=== PATIENT | male | born 1985 | race Caucasian/White ===

== ENCOUNTER 2020-10-04 18:25 | Emergency (ER) | payer OTHER, SELFPAY ==
--- NOTE | ~2020-10-04 | XR_ITS ---
EXAMINATION: XR elbow LT min 3V DATE: 10/04/2020 19:19 INDICATION: Pain at the proximal left radius and ulna post fall TECHNIQUE: Anteroposterior, two oblique and lateral views of the left elbow were obtained. COMPARISON: None. FINDINGS: Alignment is normal. Subtle linear sclerosis and cortical angulation at the anterior proximal radial head neck junction on the lateral projection consistent with minimally impacted extra articular fract ure. No other fractures identified. Joint spaces are normal. There is an associated elbow joint effus ion with displacement of both the anterior and posterior fat pads. IMPRESSION: 1. Minimally impacted fracture at the head neck junction of the proximal left radius. 2. Left elbow joint effusion. Reviewed, dictated and finalized at location A. IMPRESSION: 1. Minimally impacted fracture at the head neck junction of the proximal left r adius. 2. Left elbow joint effusion.
--- NOTE | ~2020-10-04 | XR_ITS ---
EXAMINATION: XR wrist LT min 3V DATE: 10/04/2020 19:19 INDICATION: Generalized left wrist pain post fall TECHNIQUE: Posteroanterior, ulnar deviation, oblique, and lateral views of the left wrist were obtain ed. COMPARISON: none FINDINGS: Alignment is normal at the left wrist. No fracture. 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 Soft tissues are unremarkable. IMPRESSION: 1. No acute osseous abnormality. Reviewed, dictated and finalized at location A.
[2020-10-04 18:50] VITALS: BP 160/113; PULSE 80; RESP 18; TEMP 36.5; O2SAT 98
[2020-10-04 19:53] VITALS: BP 172/100; PULSE 89; RESP 18; TEMP 36.7; O2SAT 100
--- NOTE | 2020-10-04 22:24 | ED.GENADULT ---
HPI - General Adult General Chief complaint: Extremity Injury, Upper Stated complaint: right arm pain Time Seen by Provider: 10/04/20 22:06 History of Present Illness HPI narrative: Patient is a 35-year-old gentleman who presents the emergency department chief complaint of left elbow pain. Patient reports that he fell on outstretched hand today and started having pain in his left elbow. Patient states he was seen in urgent care had plain film x-rays that did not show evidence of fracture patient was placed in a sling and reports that he continued to have worsening pain reports anytime he pronates and supinates the pain is worse. The patient has had a little bit of tingling in his fingers but that is currently not there. Patient states that he had no head injury denies neck pain. Related Data Allergies Allergy/AdvReac Type Severity Reaction Status Date / Time No Known Allergies Allergy Verified 10/04/20 19:59 Review of Systems Review of Systems: A 10 system review of systems was completed on the patient and is negative except for what is stated in the HPI. Nursing and ancillary documentation was reviewed. [facility] Family History Family History Grandparent Diabetes mellitus Hypertension Other Acute myocardial infarction Family history of cardiovascular disease Social History Social History Smoking status: Never smoker Alcohol intake: current Gender identity (if verbalized by the patient): Male Exam Narrative: GENERAL: Well-appearing, well-nourished, and in no acute distress. HEAD: Normocephalic, atraumatic. EYES: PERRLA and EOMI. ENT: Nares clear, no rhinorrhea or epistaxis. Mucous membranes moist. NECK: Supple. CHEST: Clear to auscultation. No respiratory distress. HEART: Regular rate and rhythm. No murmur heard. Normal peripheral pulses. ABDOMEN: Soft, nontender, nondistended, normal active bowel sounds. EXTREMITIES: Normal range of motion. No edema. There is tenderness to palpation in the left elbow SKIN: Warm, dry, no rash. NEURO: No focal deficits. Alert and oriented x3. PSYCH: Normal mood and affect. Course Course Emergency Course: Left elbow x-ray shows evidence of a radial head/neck fracture Vital Signs Vital signs: Vital Signs Temperature 36.5 C 10/04/20 18:50 Pulse Rate 80 10/04/20 18:50 Respiratory Rate 18 10/04/20 18:50 Blood Pressure 160/113 H 10/04/20 18:50 Pulse Oximetry 98 10/04/20 18:50 Temperature 36.7 C 10/04/20 19:53 Pulse Rate 89 10/04/20 19:53 Respiratory Rate 18 10/04/20 19:53 Blood Pressure 172/100 H 10/04/20 19:53 Pulse Oximetry 100 10/04/20 19:53 Medical Decision Making Vital Signs Vital Signs: Vital Signs Temperature 36.5 C 10/04/20 18:50 Pulse Rate 80 10/04/20 18:50 Respiratory Rate 18 10/04/20 18:50 Blood Pressure 160/113 H 10/04/20 18:50 Pulse Oximetry 98 10/04/20 18:50 Temperature 36.7 C 10/04/20 19:53 Pulse Rate 89 10/04/20 19:53 Respiratory Rate 18 10/04/20 19:53 Blood Pressure 172/100 H 10/04/20 19:53 Pulse Oximetry 100 10/04/20 19:53 Discharge Plan Discharge Clinical Impression: Elbow fracture, left Qualifiers: Encounter type: initial encounter Fracture type: closed Qualified Code(s): S42.402A - Unspecified fracture of lower end of left humerus, initial encounter for closed fracture Patient Disposition: Home, Self-Care Condition: Stable Instructions: Antibiotic Form, Elbow Fracture (ED), How to Use a Sling (ED), Splint Care (ED) Prescriptions: New hydrocodone-acetaminophen 5-325 mg tablet 1 tablet PO Q6H PRN (Reason: pain) 3 Days Qty: 12 RF: 0 Follow-up/Referrals: Javad Harrington MD [Physician] - Brannon Soliz MD [Physician] - PHYSICIAN,METAL TRIMMER [Primary Care Provider] - Time of Disposition: 22:31
[2020-10-04 22:53] VITALS: BP 177/76; PULSE 77; RESP 18; O2SAT 100
[2020-10-04] MEDS: HYDROcodone/acetaminophen (*CRX) 5-325 MG TABLET 1 TAB PO (22:53)
--- NOTE | 2020-10-20 20:41 | PC.NURSE ---
LATE ENTRY This note is being entered to document information to the patient's record. The following information was omitted on [10/05/20], by [margaret ALONSO]. Posterior long arm splint applied.
== END 2020-10-04 22:54 | disposition home or self-care (01) ==
PROVIDERS: Emergency Provider Emergency Medicine
DX: S52.122A Displaced fracture of head of left radius, initial encounter for closed fracture (principal); W19.XXXA Unspecified fall, initial encounter
CPT/HCPCS: 29105; 73080; 73110; 99284; A9270